=== PATIENT | male | born 1980 | race Caucasian/White ===

== ENCOUNTER 2017-03-24 16:00 | Emergency (ER) | payer OTHER ==
[~2017-03-24] VITALS: Ht 185.4 cm; Wt 74.3 kg
[~2017-03-24 16:00] MED LIST: BACTRIM,SEPT1 TABLET PO; CLONIDINE HCL0.1 MG PO; INDOCIN25 MG PO; KEFLEX500 MG PO; LORTAB 5-325 M1 EACH PO; METHADONE5 MG PO; MOTRIN800 MG PO; NAPROSYN500 MG PO; NO HOME MEDS; NOHOMEMEDS; NORCO 5/3251 TABLET PO; NORCO 7.5/321 TABLET PO; OXYCODONE HCL15 MG PO; PERCOCET 5/31 TABLET PO; TORADOL10 MG PO; TRAZODONE HCL50 MG PO; VALIUM5 MG PO; VICODIN 5-3001 EACH PO; ZOFRAN ODT4 MG PO; ZOFRAN4 MG PO
[2017-03-24 16:01] VITALS: BP 134/89
== END 2017-03-24 17:14 | disposition home or self-care (01) ==
LOC: EME 16:00
DX: S60.221A Contusion of right hand, initial encounter (principal); S67.21XA Crushing injury of right hand, initial encounter; W23.0XXA Caught, crushed, jammed, or pinched between moving objects, initial encounter; F17.200 Nicotine dependence, unspecified, uncomplicated
CPT/HCPCS: 73130; 99281; 99283